=== PATIENT | male | born 1980 | race Caucasian/White ===

== ENCOUNTER 2017-11-05 00:29 | Emergency (ER) | payer OTHER ==
[~2017-11-05] VITALS: Ht 180.3 cm; Wt 79.0 kg
[2017-11-05] MEDS ORDERED: ondansetron 4mg rapidly disintigrating tab PO ONE (00:50)
[2017-11-05] MEDS ORDERED: ondansetron/PF 4mg/2ml inj IV ONE (01:00)
[2017-11-05] MEDS ORDERED: normal saline 1000ML IV soln IVB ONE (01:00)
[2017-11-05 02:11] VITALS: BP 143/79
== END 2017-11-05 02:12 | disposition home or self-care (01) ==
LOC: ER 00:30
DX: R11.10 Vomiting, unspecified (principal); E86.0 Dehydration; Z88.2 Allergy status to sulfonamides
CPT/HCPCS: 96374; 99284; J2405; J7030